=== PATIENT | female | born 1990 | race Caucasian/White ===

== ENCOUNTER 2018-06-06 20:04 | Emergency (ER) | payer OTHER ==
[~2018-06-06] VITALS: Ht 172.7 cm; Wt 80.7 kg
[2018-06-06] MEDS ORDERED: CITA20TA9 (20:36)
--- NOTE | 2018-06-06 20:36 | ED Lower Extremity ---
General Chief Complaint: Lower Extremity Stated Complaint: LEFT KNEE SWELLING Source: patient Exam Limitations: no limitations History of Present Illness Date Seen by Provider: Jun 06, 2018 Time Seen by Provider: 20:31 Initial Comments 28-year-old female who presents with left knee pain and swelling. Patient states that she noticed some knee pain about 9 days ago. That yesterday he got a little warm to the touch that that pain was anterior and lateral. That she went to urgent care and got a shot of Rocephin. That it's seemingly better today but still little bit warm. She has some mild pain in the back of the knee but mainly on the upper anterior aspect. She presents because a told her she might need an oral antibiotic and did not get any. She has no popliteal or calf pain. She does once again states it significantly better following the Rocephin shot. She just wanted to come and have it reevaluated. Allergies and Home Medications Home Medications Cephalexin 500 Mg Tablet, 500 MG PO QID Prescribed by: VAZQUEZ PARRA on 06/06/182054 Patient Home Medication List Home Medication List Reviewed: Yes Review of Systems Constitutional: No chills, No fever EENTM: no symptoms reported Respiratory: no symptoms reported Cardiovascular: no symptoms reported Gastrointestinal: no symptoms reported Genitourinary: no symptoms reported : No Musculoskeletal: see HPI Past Qzpbzsr-Eomupj-Obwcgo Hx Past Med/Social Hx: Reviewed Nursing Past Med/Soc Hx Patient Social History Recent Foreign Travel: No Contact w/Someone Who Travel: No Physical Abuse: No Sexual Abuse: No Mistreated: No Fear: No Physical Exam Vital Signs Vital Signs - First Documented 06/06/18 20:27 Temp 98.9 Pulse 85 Resp 16 B/P (MAP) 136/89 (105) Pulse Ox 97 Capillary Refill : Height, Weight, BMI Height: '" Weight: lbs. oz. kg; BMI Method: General Appearance: WD/WN, no apparent distress HEENT: PERRL/EOMI Neck: full range of motion, supple Cardiovascular: regular rate, rhythm, no edema Respiratory: lungs clear, normal breath sounds, no respiratory distress Gastrointestinal: non tender, soft Knees: left knee other (Mild swelling to the anterior and anterior lateral aspect no erythema maybe some mild warmth. No posterior calf tenderness. No calf swelling or size difference. Negative DVT exam.) Progress/Results/Core Measures Results/Orders Vital Signs/I&O 06/06/18 20:27 Temp 98.9 Pulse 85 Resp 16 B/P (MAP) 136/89 (105) Pulse Ox 97 Progress Progress Note : Time: 20:49 Progress Note Patient with a negative physical DVT exam. I also reported after ultrasound at that popped till artery which was compressible up to 3 cm each direction of the popliteal vein. I also showed this to the patient. Discussed d-dimer and if positive empiric treatment for d-dimer however she had a very negative exam of both physical and ultrasound. She also improved significantly following the Rocephin shot. Based on the fact that she has negative physical and point-of- care ultrasound exam with such improvement with the Rocephin it was decided that we would forego labs or further treatment in the ER at this time that I would discharge her with a prescription for Keflex. She will follow up with her primary care physician R or Ortho within the next 2-3 days for further dilation sooner if symptoms worsen and will return to the ER as needed Departure Impression Primary Impression: Cellulitis of left lower leg Disposition: 01 HOME, SELF-CARE Condition: Critical Departure-Patient Inst. Patient Instructions: Cellulitis (Skin Infection), Adult (DC) Scripts Cephalexin (Cephalexin) 500 Mg Tablet 500 MG PO QID for 7 Days, #20 TAB 0 Refills Prov: VAZQUEZ PARRA DO 06/06/18 VAZQUEZ PARRA DO Jun 06, 2018 20:36
[2018-06-06] MEDS ORDERED: CEPH500T PO (20:55)
[2018-06-06 21:00] VITALS: BP 123/80
== END 2018-06-06 21:00 | disposition home or self-care (01) ==
LOC: ER FS 20:08
DX: L03.116 Cellulitis of left lower limb (principal)
CPT/HCPCS: 99283

== ENCOUNTER → 2018-08-04 | Outpatient (CLI) | payer OTHER ==
[~2018-08-04] MED LIST: CEPH500T PO; CITA20TA9
--- NOTE | 2018-08-04 12:08 | Diagnostic Imaging Report ---
EXAMINATION: Magnetic resonance imaging of the left knee without intravenous contrast DATE: August 04, 2018. COMPARISON: None. INDICATION: 28-year-old female, knee pain, swelling, locking. TECHNIQUE: Multiplanar, multisequence non contrast enhanced MR imaging was accomplished. FINDINGS: MENISCI: The medial meniscus is intact. The lateral meniscus is intact. LIGAMENTS AND TENDONS: The anterior and posterior cruciate ligaments are intact. The medial collateral ligament is intact. The iliotibial band, mid third lateral capsular ligament, fibular collateral ligament, biceps femoris tendon and conjoined tendon are intact. The quadriceps tendon and patella ligament are intact. JOINT: The articular cartilage surfaces are intact. There is a small to moderate knee joint effusion without prominent synovitis or identified intra-articular body. BONE: There is unremarkable bone marrow signal. Specifically, negative for fracture, osteomyelitis, osteonecrosis, or marrow replacing process. BURSAE AND SOFT TISSUES: There is no Jordan's cyst. There is mild nonspecific prepatellar subcutaneous edema. IMPRESSION: 1. Intact menisci and cruciate ligaments. Additional ligaments and tendons are intact. 2. No acute fracture or bone contusion. 3. Intact articular cartilage. Small to moderate knee joint effusion without intra-articular body or prominent synovitis. Dictated by: Dictated on workstation # [id number]
== END ==
LOC: RAD 09:02
PROVIDERS: ATTEND Nurse Practitioner
DX: S83.242D Other tear of medial meniscus, current injury, left knee, subsequent encounter (principal); M22.42 Chondromalacia patellae, left knee
CPT/HCPCS: 73721